=== PATIENT | female | born 1960 | race Caucasian/White ===

== ENCOUNTER 2018-02-20 13:18 | Emergency (ER) | payer OTHER, SELFPAY ==
[2018-02-20 13:23] VITALS: BP 148/92; PULSE 84; RESP 16; TEMP 36.3; O2SAT 97
--- NOTE | 2018-02-20 13:28 | ED_ITS ---
HPI - Headache General Chief Complaint: Headache Stated Complaint: headache/confusion Time Seen by Provider: 02/20/18 13:26 Source: patient Mode of arrival: ambulatory Limitations: no limitations History of Present Illness HPI Narrative: Patient is a 57-year-old female here for evaluation of a posterior and right-sided headache. Also complaining of tingling in her right arm and also balance issues. She states that the symptoms started approximately 1 hr prior to arrival here in the emergency department. She states she was having sexual intercourse at the time of the onset of the symptoms. Does not have a history of migraines. No history of strokes. Otherwise healthy individual. No vision changes. Has not tried anything for it prior to arrival. Related Data Allergies Allergy/AdvReac Type Severity Reaction Status Date / Time codeine Allergy Verified 02/20/18 13:26 Review of Systems Constitutional Denies fatigue, Denies fever(s), Denies frequent falls, Reports headache(s), Denies lethargy, Denies malaise and Denies weakness Eyes Denies blurry vision, Denies change in vision, Denies diplopia and Denies loss of vision ENT Ears, Nose, Mouth, and Throat: Denies vertigo, Denies dizziness, Denies facial pain, Reports headache(s), Denies hearing loss, Denies neck pain, Reports disequilibrium and Denies sore throat Cardiovascular Denies chest pain, Denies syncope, Denies palpitations and Denies dyspnea Respiratory Denies cough and Denies dyspnea Gastrointestinal Gastrointestinal: Denies abdominal pain, Denies diarrhea, Denies nausea and Denies vomiting Genitourinary Denies dysuria Musculoskeletal Reports abnormal gait, Denies myalgias, Denies arthralgias, Denies neck pain, Reports numbness (Right hand) and Reports tingling (Right hand) Integumentary/Breasts Denies lesions and Denies rash Neurologic Reports abnormal gait, Denies behavioral changes, Denies confusion, Denies vertigo, Denies dizziness, Denies syncope, Denies frequent falls, Reports headache(s), Reports lack of coordination, Denies focal weakness, Denies loss of vision, Denies memory loss, Reports numbness (Right hand), Reports tingling ( Right hand), Denies paresthesias, Reports disequilibrium and Denies weakness Psychiatric Denies behavioral changes, Denies confusion, Denies depression and Denies memory loss Endocrine Denies fatigue and Denies palpitations [facility] Medical History Healthy adult (Acute) Surgical History No pertinent past surgical history (Acute) Social History Smoking Status: Never smoker Exam Initial Vital Signs Initial Vital Signs: Vital Signs Temperature 97.3 F L 02/20/18 13:23 Pulse Rate 84 02/20/18 13:23 Respiratory Rate 16 02/20/18 13:23 Blood Pressure 148/92 H 02/20/18 13:23 Pulse Oximetry 97 02/20/18 13:23 Const General: cooperative, healthy appearing, comfortable, well developed, well groomed and No acute distress Orientation: alert, awake and oriented x3 HENMT Head: normal to inspection, normocephalic and atraumatic Face and sinus: normal facial exam Mouth: oral mucosae normal Eyes Pupils: PERRL EOM: EOM intact bilaterally Neck Neck: full ROM and no meningeal signs Resp Effort & Inspection: normal respiratory effort Auscultation: clear to auscultation bilaterally Cardio Rate: regular rate Rhythm: regular rhythm Heart Sounds: no murmurs Pulses: radial pulses present GI Inspection: non-distended Palpation: soft, No firm and No tender Back/Spine/Pelvis Back: No CVA tenderness Skin Lesions: no lesions Rashes: no rashes Wounds: no wounds Neuro General: alert, awake and oriented x3 Cranial Nerves: CN's II-XI intact bilaterally Cognition: normal cognition Speech: speech normal Other: 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 4/5 right upper extremity computer peripheral equipment operator strength. Patient able to do finger to nose with left hand unremarkable. Had some difficulty but was able to complete [id number] with right hand. Heel to braxton equal bilateral. Patient able to stand but did state that she was falling to the right. When she closed her eyes she did have difficulty standing. Sensation intact objectively to light touch bilateral upper extremities however patient states that her right hand was tingling. No lower extremity sensation changes. Extrem General: normal to inspection and capillary refill normal Scores NIH Stroke Scale Level of Conciousness: Alert, keenly responsive Ask month/age: Answers both questions correctly. Open/close eyes, close hand: Performs both tasks correctly Best gaze horizontal: Normal Visual mccoy: No visual loss Facial palsy: Normal symetrical movement Left arm drift: No drift for full 10 sec Right arm drift: No drift for full 10 sec Left leg drift: No drift for full 10 sec Right leg drift: No drift for full 10 sec Limb ataxia: Present in one limb Sensory on face/arms/legs: Mild to moderate sensory loss, can tell touch Best language: No aphasia, normal Dysarthria: Normal Extinction or inattention: No abnormality Total NIH Stroke scale score: 2 Course Orders Ordered: ED Orders 02/20/18 13:28 CT head/brain wo con Stat 02/20/18 14:05 Basic Metabolic Panel Stat Complete Blood Count AUTO DIFF Stat Partial Thromboplastin Time Stat Prothrombin Time INR Stat 02/20/18 14:15 MR angio neck w con Stat 02/20/18 14:24 MR angio head wo con Stat Discontinued Medications Acetaminophen (Tylenol) 975 mg PO NOW ONE Stop: 02/20/18 14:21 Last Admin: 02/20/18 14:49 Dose: Diphenhydramine HCl (Benadryl) 25 mg IV NOW ONE Stop: 02/20/18 14:21 Last Admin: 02/20/18 14:48 Dose: 25 mg Sodium Chloride (Normal Saline 0.9%) 1,000 mls @ 1,000 mls/hr IV BOLUS ONE Stop: 02/20/18 15:19 Last Infusion: 02/20/18 17:11 Dose: 0 mls/hr Admin: 02/20/18 14:48 Dose: 1,000 mls/hr Metoclopramide HCl (Reglan) 10 mg IV NOW ONE Stop: 02/20/18 14:21 Last Admin: 02/20/18 14:48 Dose: 10 mg Vital Signs - 8 hr 02/20/18 13:23 02/20/18 14:15 02/20/18 15:00 Temperature 97.3 F L Pulse Rate 84 81 77 Respiratory Rate 16 20 17 Blood Pressure 148/92 H Blood Pressure [Left Arm] 126/84 121/81 Pulse Oximetry 97 96 97 02/20/18 15:57 02/20/18 16:40 02/20/18 17:08 Temperature Pulse Rate 76 72 62 Respiratory Rate 14 14 Blood Pressure 115/65 Blood Pressure [Left Arm] 124/85 103/69 Pulse Oximetry 95 96 99 MDM - Headache Lab Data Attestation: I reviewed the patient's lab results. Result diagrams: 02/20/18 14:05 02/20/18 14:05 Lab Results 02/20/18 02/20/18 02/20/18 Range/Units 14:05 14:05 14:05 WBC 8.7 (4.5-11.0) X10^3/uL RBC 4.29 (4.0-5.2) X10^6/uL Hgb 13.9 (12.0-16.0) g/dL Hct 39.9 (36-46) % MCV 92.9 (80-100) fL MCH 32.4 (26-34) PG MCHC 34.9 (30-36) % RDW 13.2 (11.6-14.8) % Plt Count 237 (150-400) X10^3/uL Neut % (Auto) 69.1 (50-75) % Lymph % (Auto) 23.5 L (25-40) % Owen % (Auto) 6.1 (3-14) % Eos % (Auto) 0.9 L (2-4) % Baso % (Auto) 0.4 (0-2) % Neut # (Auto) 6000 H (4389-7141) /uL PT 10.2 (10.1-12.7) SECONDS INR 0.9 (0.9-1.3) APTT 29 (26.4-36.2) SECONDS Sodium 143 (137-145) mmol/L Potassium 3.6 (3.4-5.1) mmol/L Chloride 104 (98-107) mmol/L Carbon Dioxide 29 (22-32) mmol/L BUN 18 H (7-17) mg/dL Creatinine 0.90 (0.52-1.04) mg/dL Estimated GFR > 60.0 (>60) mL/min BUN/Creatinine Ratio 20.0 (6-22) Glucose 82 (70-100) mg/dL Calcium 10.4 H (8.4-10.2) mg/dL Urine Dip Bedside Urine Glucose Negative Bedside Urine Bilirubin - Negative Bedside Urine Ketone +/- 5 Urine Specific [place] 1.015 Bedside Urine Occult Blood - Negative Bedside Urine pH 6.0 Bedside Urine Protein - Negative Bedside Urine Urobilinogen - Negative Bedside Urine Nitrite - Negative Bedside Urine Leukocytes - Negative Esterase Imaging Data MRI - head: Radiologist's impression: [address] [address] Magnetic Resonance Report Signed Patient: Shayy Villasenor LMR#: [id number] : 1960Acct:[id number] Age/Sex: 57 / FDate of Service: 02/20/18 Loc: ED Accession Number: [id number] Procedure: MR angio head wo con Ordering Provider: Marlon Amaya D.O. PROCEDURE: MR ANGIO HEAD WO CON INDICATIONS: headache with right arm weakness, include MRV TECHNIQUE: Noncontrast axial 3-D [id number] MR angiogram, with 3-dimensional maximum intensity projection (MIP) reformats of the internal carotid arteries and posterior circulation then performed. COMPARISON: None. FINDINGS: Image quality: Excellent. Anterior circulation: Intracranial internal carotid arteries demonstrate normal size and intraluminal flow signal. The flow within the paired anterior cerebral arteries is normal and symmetric. The flow within the middle cerebral arteries is normal and symmetric. The anterior communicating artery is seen. No stenoses, occlusions , or aneurysms. Posterior circulation: Visualized portions of the vertebral arteries demonstrate normal anatomic variant asymmetric right dominant caliber, and join to form a normal appearing basilar artery. The flow within the posterior cerebral arteries is normal and symmetric. No stenoses, occlusions, or aneurysms. Note: MR venogram also was obtained, and appears normal. IMPRESSION: Normal anatomic variant strongly dominant right vertebral artery, normal intracranial MR angiogram. Normal intracranial MR venogram. Dictated by: Jovany Bello M.D. on 02/20/2018 at 16:29 Approved by: Jovany Bello M.D. on 02/20/2018 at 16:31 MRI angio neck: Radiologist's impression: [address] [address] Magnetic Resonance Report Signed Patient: Shayy Villasenor LMR#: [id number] : 1960Acct:[id number] Age/Sex: 57 / FDate of Service: 02/20/18 Loc: ED Accession Number: [id number] Procedure: MR angio neck w con Ordering Provider: Marlon Amaya D.O. PROCEDURE: MR ANGIO NECK W CON INDICATIONS: Right sided headache TECHNIQUE: Axial and sagittal TruFISP through the neck. Coronal dynamic MRA after the administration of contrast in the arterial and venous phases, with rotating 3- dimensional maximum intensity projection (MIP) reformats constructed from subtraction images. COMPARISON: None. FINDINGS: Image quality: Excellent. Carotid system: Great vessels demonstrate a conventional anatomy as they arise from the aortic arch. The origins of the common carotid arteries appear normal. The calibers and courses of the common carotid arteries are likewise normal. The carotid bifurcations appear normal bilaterally. The internal carotid arteries are widely patent up to the [place] of [place]. Posterior circulation: The origins of the vertebral arteries are unremarkable. The more superior portions of the vertebral arteries demonstrate normal course and caliber. Vertebral arteries show a normal anatomic variant strongly dominant right vertebral artery, and join to form a normal appearing basilar artery. Miscellaneous: Subclavian arteries are patent throughout. Pre-contrast images through the neck demonstrate no soft tissue abnormalities. IMPRESSION: No carotid stenosis, normal anatomic variant strongly dominant right vertebral artery as an incidental finding. Any quantitative measurements of stenosis were performed using NASCET criteria. Dictated by: Jovany Bello M.D. on 02/20/2018 at 16:32 Approved by: Jovany Bello M.D. on 02/20/2018 at 16:34 CT scan - head: Radiologist's impression: [place] [address] CT Scan Report Signed Patient: Shayy Villasenor LMR#: [id number] : 1961Acct:[id number] Age/Sex: 57 / FDate of Service: 02/20/18 Loc: ED Accession Number: [id number] Procedure: CT head/brain wo con Ordering Provider: Marlon Amaya D.O. PROCEDURE: CT HEAD/BRAIN WO CON INDICATIONS: Sudden onset headache TECHNIQUE: Noncontrast 4.5 mm thick angled axial sections acquired from the foramen magnum to the vertex, with coronal and sagittal reformats. For radiation dose reduction, the following was used: automated exposure control, adjustment of mA and/or kV according to patient size. COMPARISON: None. FINDINGS: Image quality: Excellent. CSF spaces: Basal cisterns are patent. No extra-axial fluid collections. Ventricles are normal in size and shape. Brain: No midline shift. No intracranial masses or hemorrhage. Albright-white matter interface is normal. Skull and face: Calvarium and visualized facial bones are intact, without suspicious lesions. Sinuses: Visualized sinuses and mastoids are clear. IMPRESSION: Normal for age, source of current symptoms is not seen. Dictated by: Jovany Bello M.D. on 02/20/2018 at 13:59 Approved by: Jovany Bello M.D. on 02/20/2018 at 13:59 [facility] Narrative Medical decision making narrative: Patient's labs are unremarkable. Radiologic studies of the head and neck to include CT and MRA MRV of the head neck negative for acute pathology. Patient did have a great improvement of her symptoms after the medications to the IV here in the ER. She also states that her neurologic symptoms improved after this. The extensive neurologic workup was secondary to the fact that this occurred while she was having sexual intercourse and also the neurologic symptoms that she was having. We also discussed a lumbar puncture however after the negative MR studies will hold on this. Patient has a NIH score of 2. Given the improvement of her symptoms and the lack of findings the neurologic studies will hold on any tPA. After we discuss the results of all of her studies and improvement of her symptoms the patient was offered more medication to help her symptoms in the ER however she declined and was asking to go home. She was given return precautions. She expressed understanding and agreement with plan. Discharge Plan Departure Patient Disposition: Home Clinical Impression: Headache, Hand paresthesia Discharge Date/Time: 02/20/18 17:08 Interventions: ED Discharge Assessment Last Done: 02/20/18 17:08 Instructions: DI for Headache Activity Restrictions/Additional Instructions: No acute findings were found on all of the imaging studies that were done today. Highly recommend that you contact your primary care doctor for a follow- up. Return to the emergency department for any new or worsening symptoms.
--- NOTE | 2018-02-20 13:48 | PC.NURSE ---
pt reports witnessed acute onset rt side headache/dizziness during physical exertion, improved slightly with tylenol/aleve, provider reports positive findings on NIH ataxia/inattention, code stroke activated, pt is alert/oriented, denies nausea/vomiting/cough/cp/soa/trauama or other recent illness, amb to room with sba
[2018-02-20 14:10] LABS: Add Manual Diff / Slide Review NO; Basophils Percent Auto 0.4 % (0-2); Eosinophils Percent Auto 0.9 % (2-4); Hematocrit 39.9 % (36-46); Hemoglobin 13.9 g/dL (12.0-16.0); Lymphocytes Percent Auto 23.5 % (25-40); Mean Corpuscular HGB Conc 34.9 % (30-36); Mean Corpuscular Hemoglobin 32.4 PG (26-34); Mean Corpuscular Volume 92.9 fL (80-100); Monocytes Percent Auto 6.1 % (3-14); Neutrophils Absolute Auto 6000 /uL (3000-5900); Neutrophils Percent Auto 69.1 % (50-75); Platelet Count 237 X10^3/uL (150-400); Red Blood Cell Count 4.29 X10^6/uL (4.0-5.2); Red Cell Distribution Width 13.2 % (11.6-14.8); White Blood Cell Count 8.7 X10^3/uL (4.5-11.0)
[2018-02-20 14:15] VITALS: BP 126/84; PULSE 81; RESP 20; O2SAT 96
--- NOTE | 2018-02-20 14:15 | DI.MRI.S_ITS ---
PROCEDURE: MR ANGIO NECK W CON INDICATIONS: Right sided headache TECHNIQUE: Axial and sagittal TruFISP through the neck. Coronal dynamic MRA after the administration of contrast in the arterial and venous phases, with rotating 3-dimensional maximum intensity projection (MIP) reformats constructed from subtraction images. COMPARISON: None. FINDINGS: Image quality: Excellent. Carotid system: Great vessels demonstrate a conventional anatomy as they arise from the aortic arch. The origins of the common carotid arteries appear normal. The calibers and courses of the common carotid arteries are likewise normal. The carotid bifurcations appear normal bilaterally. The internal carotid arteries are widely patent up to the [place] of [place]. Posterior circulation: The origins of the vertebral arteries are unremarkable. The more superior portions of the vertebral arteries demonstrate normal course and caliber. Vertebral arteries show a normal anatomic variant strongly dominant right vertebral artery, and join to form a normal appearing basilar artery. Miscellaneous: Subclavian arteries are patent throughout. Pre-contrast images through the neck demonstrate no soft tissue abnormalities. IMPRESSION: No carotid stenosis, normal anatomic variant strongly dominant right vertebral artery as an incidental finding. Any quantitative measurements of stenosis were performed using NASCET criteria. Dictated by: Jovany Bello M.D. on 02/20/2018 at 16:32 Approved by: Jovany Bello M.D. on 02/20/2018 at 16:34
[2018-02-20 14:20] LABS: INR 0.9 (0.9-1.3); Prothrombin Time 10.2 SECONDS (10.1-12.7)
[2018-02-20 14:23] LABS: PTT Partial Thromboplastin Tim 29 SECONDS (26.4-36.2)
--- NOTE | 2018-02-20 14:24 | DI.MRI.S_ITS ---
PROCEDURE: MR ANGIO HEAD WO CON INDICATIONS: headache with right arm weakness, include MRV TECHNIQUE: Noncontrast axial 3-D [id number] MR angiogram, with 3-dimensional maximum intensity projection (MIP) reformats of the internal carotid arteries and posterior circulation then performed. COMPARISON: None. FINDINGS: Image quality: Excellent. Anterior circulation: Intracranial internal carotid arteries demonstrate normal size and intraluminal flow signal. The flow within the paired anterior cerebral arteries is normal and symmetric. The flow within the middle cerebral arteries is normal and symmetric. The anterior communicating artery is seen. No stenoses, occlusions, or aneurysms. Posterior circulation: Visualized portions of the vertebral arteries demonstrate normal anatomic variant asymmetric right dominant caliber, and join to form a normal appearing basilar artery. The flow within the posterior cerebral arteries is normal and symmetric. No stenoses, occlusions, or aneurysms. Note: MR venogram also was obtained, and appears normal. IMPRESSION: Normal anatomic variant strongly dominant right vertebral artery, normal intracranial MR angiogram. Normal intracranial MR venogram. Dictated by: Jovany Bello M.D. on 02/20/2018 at 16:29 Approved by: Jovany Bello M.D. on 02/20/2018 at 16:31
[2018-02-20 14:25] LABS: Blood Urea Nitrogen 18 mg/dL (7-17); Calcium 10.4 mg/dL (8.4-10.2); Carbon Dioxide 29 mmol/L (22-32); Chloride 104 mmol/L (98-107); Estimated Glomerular Filt Rate > 60.0 mL/min (>60); Glucose 82 mg/dL (70-100); HEMOLYSIS < 15 (0-50); Potassium 3.6 mmol/L (3.4-5.1); Sodium 143 mmol/L (137-145)
[2018-02-20] MEDS: diphenhydrAMINE 50 MG/ML VIAL 25 MG IV (14:48)
[2018-02-20] MEDS: SODIUM CHLORIDE 0.9% 1,000 ML 1000 ML IV (14:48)
[2018-02-20] MEDS: METOCLOPRAMIDE 10 MG/2 ML INJ IV (14:48)
[2018-02-20 15:00] VITALS: BP 121/81; PULSE 77; RESP 17; O2SAT 97
[2018-02-20 15:57] VITALS: BP 124/85; PULSE 76; RESP 14; O2SAT 95
[2018-02-20 16:40] VITALS: BP 103/69; PULSE 72; O2SAT 96
[2018-02-20 17:08] VITALS: BP 115/65; PULSE 62; RESP 14; O2SAT 99
== END 2018-02-20 17:08 | disposition home or self-care (01) ==
PROVIDERS: Emergency Provider Emergency Medicine
DX: R51 Headache (principal); R20.2 Paresthesia of skin
CPT/HCPCS: 70450; 70544; 70548; 80048; 81003; 85025; 85610; 85730; 96361; 96374; 96375; 99283; 99285; 99291; J1200; J2765